=== PATIENT | male | born 1995 | race Caucasian/White ===

== ENCOUNTER 2017-11-14 14:28 | Emergency (ER) | payer BC, OTHER ==
[2017-11-14] MEDS ORDERED: NA CHLORIDE 0.9% 2,000 ML ONE (14:37)
[2017-11-14 14:50] LABS: Absolute Lymphocytes (CBC) 4.6 K/uL (0.7-4.9); Absolute Monocytes 1.1 K/uL (0.1-1.3); Absolute Neutrophil 9.2 K/uL (1.8-8.0); Basophils % 0.6 % (0-1.3); Eosinophils % 0.8 % (0-4.4); Hematocrit 45.8 % (39.6-49.0); Lymphocytes % 30.5 % (15.3-44.8); MCH 28.3 pg (27.0-35.0); MCV 87.3 fL (80-100); MPV 8.8 fL (7.6-11.3); RBC Red Blood Cell Count 5.25 M/uL (4.33-5.43)
[2017-11-14 14:54] LABS: Protime INR 1.05
[2017-11-14] MEDS ORDERED: LIDOCAINE 1% W/EPI 1:100,000 MDV 50 ML VIAL ONE (14:57)
[2017-11-14] MEDS ORDERED: BUPIVACAINE 0.5% PF 10 ML VIAL ONE (14:57)
[2017-11-14] MEDS ORDERED: CEFAZOLIN/SWI 1gm 1 GM/10 ML SYR ONE (14:57)
[2017-11-14 14:59] LABS: Potassium 3.9 mEq/L (3.6-5.0)
[2017-11-14] MEDS ORDERED: FENTANYL CITR 100 MCG/2 ML ONE (15:02)
[2017-11-14] MEDS ORDERED: ONDANSETRON 4 MG/2 ML VIAL ONE (15:02)
--- NOTE | 2017-11-14 16:06 | RAD REPORT ---
EXAM DESCRIPTION: RAD -Hand Left 3 View - 11/14/2017 3:15 pm CLINICAL HISTORY: Left hand pain status post injury FINDINGS: No fracture or dislocation is seen. A bandage overlies the lateral aspect of the hand. A 14 millimeter density overlies the lower wrist. This could represent a foreign body and should be c orrelated clinically. If this does not represent a foreign body then this may represent an unusual calcification
--- NOTE | 2017-11-14 16:31 | ER ---
Nurse's Notes [facility] Name: Aidan Farley Age: 22 yrs Sex: Male : 1995 Arrival Date: 11/14/2017 Time: 14:28 Bed 30 Private MD: Diagnosis: Laceration with foreign body of left hand;Laceration of flexor muscle, fascia and tendon of left little finger at wrist and hand level Presentation: 11/14 14:29 Presenting complaint: Patient states: Lacerated left palm of hand after hitting a aj mirror today just [employer]. Large amount of blood noted to patient's clothing and large gauze dressing to left hand saturated with blood upon arrival. Patient pale and tachypneic. Transition of care: patient was not received from another setting of care. Complicating Factors: There are no complicating factors for this patient. Onset of symptoms was November 14, 2017. Risk Assessment: Do you want to hurt yourself or someone else? Patient reports no desire to harm self or others. Care prior to arrival: Bleeding of injury uncontrolled. Injury dressed. Medication(s) given: zofran 4 mg, IV initiated. 20 GA, in the right antecubital area. 14:29 Method Of Arrival: EMS: [facility] 14:29 Acuity: ARACELI 2 aj 17:26 Initial Sepsis Screen: Does the patient meet any 2 criteria? No. Patient's initial rk2 sepsis screen is negative. Does the patient have a suspected source of infection? No. Patient's initial sepsis screen is negative. Triage Assessment: 14:31 General: Appears in no apparent distress. uncomfortable, slender, Behavior is anxious. aj Pain: Complains of pain in palm of left hand and inner aspect of left palm. Neuro: Level of Consciousness is awake, alert, obeys commands, Oriented to person, place, time, situation, Appropriate for age. Cardiovascular:. Respiratory: Airway is patent Respiratory effort is even, unlabored, Respiratory pattern is tachypnea. Derm: Skin is intact, is healthy with good turgor, Skin is dry, Skin is pale. Injury Description: Laceration sustained to palm of left hand and inner aspect of left palm is 2.6 to 7.5 cm long, bleeding profusely, was sustained 30-60 minutes ago. is bleeding profusely a dressing was applied. Historical: - Allergies: 14:31 No Known Allergies; aj - Home Meds: 14:31 None [Active]; aj - PMHx: 14:31 Seizures; aj - PSHx: 14:31 None; aj - Immunization history:: Adult Immunizations up to date. - Social history:: Smoking status: Patient/guardian denies using tobacco. - Ebola Screening: : Patient negative for fever greater than or equal to 101.5 degrees Fahrenheit, and additional compatible Ebola Virus Disease symptoms Patient denies exposure to infectious person Patient denies travel to an Ebola-affected area in the 21 days before illness onset No symptoms or risks identified at this time. Screenin:52 Abuse screen: Denies threats or abuse. Denies injuries from another. Nutritional aj screening: No deficits noted. Tuberculosis screening: No symptoms or risk factors identified. Fall Risk None identified. Assessment: 14:52 Reassessment: See triage. aj 15:08 General: Appears in no apparent distress. comfortable, Behavior is calm, cooperative, aj appropriate for age. Pain: Complains of pain in left hand. Neuro: Level of Consciousness is awake, alert, obeys commands, Oriented to person, place, time, situation, Appropriate for age. Respiratory: Airway is patent Respiratory effort is even, unlabored, Respiratory pattern is regular, symmetrical. Derm: Skin is intact, is healthy with good turgor, Skin is pink, warm \T\ dry. normal. Musculoskeletal: Patient is unable to bend left 5 th digit. 17:23 Injury Description: Laceration. rk2 17:23 Reassessment: Called report to receiving SISSY Liu.[facility] arrived, rk2 report given. Pt. placed on stretcher and transported. Vital Signs: 14:31 BP 86 / 57; Pulse 93; Resp 31; Temp 97.9; Pulse Ox 97% on R/A; Weight 74.84 kg; Height aj 5 ft. 11 in. (180.34 cm); 14:52 BP 108 / 89; Pulse 93; Resp 18; Pulse Ox 99% on R/A; aj 15:08 BP 117 / 75; Pulse 77; Resp 16; Pulse Ox 98% on R/A; aj 15:54 BP 104 / 81; Pulse 68; Resp 19; Pulse Ox 98% on R/A; aj 16:16 BP 112 / 66; Pulse 86; Resp 17; Pulse Ox 100% on R/A; rk2 17:15 BP 104 / 79; Pulse 99; Resp 17; Pulse Ox 100% on R/A; rk2 14:31 Body Mass Index 23.01 (74.84 kg, 180.34 cm) aj ED Course: 14:28 Patient arrived in ED. aj 14:30 Triage completed. aj 14:31 Arm band placed on right wrist. Patient placed in an exam room. Bandage applied. aj 14:32 Guy Lee PA is PHCP. cp 14:32 Mark Moe MD is Attending Physician. cp 14:39 Celeste Chatterjee RN is Primary Nurse. aj 14:52 Patient has correct armband on for positive identification. aj 14:52 Inserted saline lock: 20 gauge in left antecubital area, using aseptic technique. aj Maintain EMS IV. Gauge \T\ site: 20 to right AC. 15:14 X-ray completed. Portable x-ray completed in exam room. Patient tolerated procedure ag1 poorly. 15:14 XRAY Hand LEFT 3 View In Process Unspecified. EDMS 15:54 Assist provider with laceration repair on palm of left hand and inner aspect of left aj palm that was between 2.6 to 7.5 cm using sutures. Set up tray. Performed by Guy PAYNE Dressed with Radha, Patient tolerated well. 17:26 Patient transferred, IV remains in place. rk2 Administered Medications: 14:39 Drug: NS 0.9% 1000 ml Route: IV; Rate: 1 bolus; Site: left antecubital; aj 17:22 Follow up: Response: No adverse reaction; IV Status: Completed infusion rk2 14:39 Drug: NS 0.9% 1000 ml Route: IV; Rate: 1 bolus; Site: left antecubital; aj 17:22 Follow up: Response: No adverse reaction; IV Status: Completed infusion rk2 14:58 CANCELLED (route changed): Ancef 1 grams IM once aj 14:58 Drug: Ancef 1 grams Route: IVPB; Site: left antecubital; aj 15:30 Follow up: Response: No adverse reaction; IV Status: Completed infusion rk2 15:04 Drug: fentaNYL (PF) 50 mcg Route: IVP; Site: left antecubital; aj 17:21 Follow up: Response: No adverse reaction rk2 15:04 Drug: Zofran 4 mg Route: IVP; Site: left antecubital; aj 17:21 Follow up: Response: No adverse reaction rk2 15:07 Drug: Lidocaine-Epinephrine -1%: (1:100,000) 5 ml Volume: 20 ml; Route: Infiltration; aj 15:07 Drug: Marcaine (0.5 %) 1 mg Volume: 10 ml; Route: Infiltration; aj 17:20 Follow up: Response: No adverse reaction rk2 Outcome: 16:30 ER care complete, transfer ordered by . mendoza 17:25 Transferred by ground EMS to [facility]. rk2 17:25 Condition: good 17:25 Instructed on the need for transfer. 17:26 Patient left the ED. rk2 Signatures: Dispatcher [employer] EDCeleste Alas RN Marivel James ag1 Guy Lee PA PA cp Kidder, Rhonda RN RN rk2 Corrections: (The following items were deleted from the chart) 14:31 14:29 Care prior to arrival: None. charlie guerra
--- NOTE | 2017-11-14 16:31 | EDPHYS ---
Physician Documentation [facility] Name: Aidan Farley Age: 22 yrs Sex: Male : 1995 Arrival Date: 11/14/2017 Time: 14:28 Bed 30 Private MD: ED Physician Mark Moe HPI: 11/14 14:35 This 22 yrs old Male presents to ER via EMS with complaints of Laceration To cp Hand. 14:35 The patient has a laceration related to: became upset occurred at home, and broke cp mirror with left hand The injury was accidental. The laceration(s) is(are) located on the proximal palm of left hand. Onset: The symptoms/episode began/occurred just prior to arrival. Associated signs and symptoms: Pertinent positives: heavy bleeding. Historical: - Allergies: 14:31 No Known Allergies; aj - Home Meds: 14:31 None [Active]; aj - PMHx: 14:31 Seizures; aj - PSHx: 14:31 None; aj - Immunization history:: Adult Immunizations up to date. - Social history:: Smoking status: Patient/guardian denies using tobacco. - Ebola Screening: : Patient negative for fever greater than or equal to 101.5 degrees Fahrenheit, and additional compatible Ebola Virus Disease symptoms Patient denies exposure to infectious person Patient denies travel to an Ebola-affected area in the 21 days before illness onset No symptoms or risks identified at this time. ROS: 14:40 Constitutional: Negative for body aches, chills, fever, poor PO intake. cp 14:40 Cardiovascular: Negative for chest pain, edema. cp 14:40 Respiratory: Negative for cough, shortness of breath, wheezing. 14:40 Abdomen/GI: Negative for abdominal pain, nausea, vomiting, and diarrhea. 14:40 Skin: Positive for laceration(s), Negative for cellulitis, rash. 14:40 All other systems are negative. Exam: 14:45 Constitutional: The patient appears alert, awake, non-toxic, well developed, well cp nourished, in obvious distress, mildly distressed. 14:45 Head/Face: Normocephalic, atraumatic. Eyes: Pupils equal round and reactive to light, cp extra-ocular motions intact. Lids and lashes normal. Conjunctiva and sclera are non-icteric and not injected. Cornea within normal limits. Periorbital areas with no swelling, redness, or edema. ENT: Nares patent. No nasal discharge, no septal abnormalities noted. Tympanic membranes are normal and external auditory canals are clear. Oropharynx with no redness, swelling, or masses, exudates, or evidence of obstruction, uvula midline. Mucous membranes moist. Chest/axilla: Normal chest wall appearance and motion. Nontender with no deformity. No lesions are appreciated. 14:45 Cardiovascular: Rate: normal, actual rate is 93 bpm, Rhythm: regular, Pulses: Pulses are 2+ in right radial artery and left radial artery. 14:45 Respiratory: the patient does not display signs of respiratory distress, Respirations: normal, no use of accessory muscles, no retractions, no splinting, no tachypnea, labored breathing, is not present, Breath sounds: are clear throughout, no decreased breath sounds, no stridor, no wheezing. 14:45 Abdomen/GI: Inspection: abdomen appears normal, Bowel sounds: active, all quadrants, cp Palpation: abdomen is soft and non-tender, in all quadrants, rebound tenderness, is not appreciated, voluntary guarding, is not appreciated, involuntary guarding, is not appreciated. 14:45 Skin: injury, laceration(s), the wound is approximately 7 cm(s), of the landeros aspect of hypothenar eminence extending to hyperthenar eminence, that can be described as clean, no foreign body, irregular, with severe bleeding. 14:45 Neuro: Sensation: 2 point discrimination is decreased in the all digits distally. 14:45 Back: pain, is absent, ROM is normal. cp Vital Signs: 14:31 BP 86 / 57; Pulse 93; Resp 31; Temp 97.9; Pulse Ox 97% on R/A; Weight 74.84 kg; Height aj 5 ft. 11 in. (180.34 cm); 14:52 BP 108 / 89; Pulse 93; Resp 18; Pulse Ox 99% on R/A; aj 15:08 BP 117 / 75; Pulse 77; Resp 16; Pulse Ox 98% on R/A; aj 15:54 BP 104 / 81; Pulse 68; Resp 19; Pulse Ox 98% on R/A; aj 16:16 BP 112 / 66; Pulse 86; Resp 17; Pulse Ox 100% on R/A; rk2 17:15 BP 104 / 79; Pulse 99; Resp 17; Pulse Ox 100% on R/A; rk2 14:31 Body Mass Index 23.01 (74.84 kg, 180.34 cm) aj MDM: 14:54 Patient medically screened. cp 16:00 Physician consultation: Amrik Cunningham MD was called at 15:30, was contacted at 16:00, cp regarding patient's condition, need to come to ED to see patient, requests transfer due to unavailability until this evening. 16:15 Data reviewed: vital signs, nurses notes, lab test result(s), radiologic studies, plain cp films. 16:30 Physician consultation: DR Meehan, hand surgeon \\[facility], would like patient cp admitted to hospitalist with him as consult. Spoke with DR Arndt who will accept patient as transfer. 11/14 14:33 Order name: Basic Metabolic Panel; Complete Time: 15:21 11/14 14:33 Order name: CBC with Diff; Complete Time: 15:21 / 16:08 Interpretation: Normal except: WBC 15.1; NEUT A 9.2. cp / 14:33 Order name: Creatinine for Radiology; Complete Time: 15:21 cp 11/14 14:33 Order name: Type And Screen; Complete Time: 16:07 / 14:33 Order name: PT-INR; Complete Time: 15:21 cp / 14:33 Order name: Ptt, Activated; Complete Time: 15:21 11/14 14:35 Order name: XRAY Hand LEFT 3 View; Complete Time: 16:07 / 16:12 Order name: ABO/RH no charge; Complete Time: 16:30 EDMS 11/14 16:30 Interpretation: Reviewed. 11/14 14:33 Order name: Labs collected and sent; Complete Time: 15:37 cp / 14:33 Order name: IV; Complete Time: 14:40 cp / 14:33 Order name: Dressing - Wound; Complete Time: 14:39 cp 11/14 14:33 Order name: Gloves, Sterile; Complete Time: 14:40 cp 11/14 14:33 Order name: Setup Suture Tray; Complete Time: 14:40 cp / 14:48 Order name: Labs - recollect needed; Complete Time: 15:04 bd 11/14 16:14 Order name: NPO; Complete Time: 16:24 cp Administered Medications: 14:39 Drug: NS 0.9% 1000 ml Route: IV; Rate: 1 bolus; Site: left antecubital; aj 17:22 Follow up: Response: No adverse reaction; IV Status: Completed infusion rk2 14:39 Drug: NS 0.9% 1000 ml Route: IV; Rate: 1 bolus; Site: left antecubital; aj 17:22 Follow up: Response: No adverse reaction; IV Status: Completed infusion rk2 14:58 CANCELLED (route changed): Ancef 1 grams IM once aj 14:58 Drug: Ancef 1 grams Route: IVPB; Site: left antecubital; aj 15:30 Follow up: Response: No adverse reaction; IV Status: Completed infusion rk2 15:04 Drug: fentaNYL (PF) 50 mcg Route: IVP; Site: left antecubital; aj 17:21 Follow up: Response: No adverse reaction rk2 15:04 Drug: Zofran 4 mg Route: IVP; Site: left antecubital; aj 17:21 Follow up: Response: No adverse reaction rk2 15:07 Drug: Lidocaine-Epinephrine -1%: (1:100,000) 5 ml Volume: 20 ml; Route: Infiltration; aj 15:07 Drug: Marcaine (0.5 %) 1 mg Volume: 10 ml; Route: Infiltration; aj 17:20 Follow up: Response: No adverse reaction rk2 Disposition: 17:23 Chart complete. cp 17:44 Co-signature as Attending Physician, Mark Moe MD. rn Disposition: 11/14/17 16:30 Transfer ordered to [facility]. Diagnosis are Laceration with foreign body of left hand, Laceration of flexor muscle, fascia and tendon of left little finger at wrist and hand level. - Reason for transfer: Higher level of care. - Accepting physician is DR Arndt. - Condition is Stable. - Problem is new. - Symptoms have improved. Signatures: Dispatcher [employer] EDMS Roxane Avendano Amanda, RN RN aj Nieto, Roman, MD MD rn Page, Corey, PA PA cp Kidder, Rhonda, RN RN rk2 Corrections: (The following items were deleted from the chart) 14:40 14:33 IV Saline Lock ordered. cp aj 14:58 14:33 Ancef 1 grams IM once ordered. cp aj 16:08 16:08 Normal except: WBC 15.1. cp cp 17:26 16:30 11/14/2017 16:30 Transfer ordered to [facility]. Diagnosis is rk2 Laceration with foreign body of left hand; Laceration of flexor muscle, fascia and tendon of left little finger at wrist and hand level. Reason for transfer: Higher level of care. Accepting physician is DR Arndt. Condition is Stable. Problem is new. Symptoms have improved. cp
[2017-11-14 18:30] VITALS: TEMP 97.9
[2017-11-14 18:34] VITALS: O2SAT 100
[2017-11-14 18:35] VITALS: BP 104/79
== END 2017-11-14 17:26 | disposition short-term general hospital (02) ==
LOC: ER 14:28
DX: S61.412A Laceration without foreign body of left hand, initial encounter (principal); S66.127A Laceration of flexor muscle, fascia and tendon of left little finger at wrist and hand level, initial encounter; W25.XXXA Contact with sharp glass, initial encounter; Y93.9 Activity, unspecified; Y92.009 Unspecified place in unspecified non-institutional (private) residence as the place of occurrence of the external cause; Y99.9 Unspecified external cause status
CPT/HCPCS: 36415; 80048; 85025; 85610; 85730; 86850; 86900; 86901; 96361; 96365; 96375; 99285; J0690; J2405; J3010; J7030

== ENCOUNTER 2019-06-14 08:51 | Emergency (ER) | payer BC ==
--- OUTSIDE RECORDS SUMMARY | 2019-06-14 08:54 | XMS REPORT ---
:1995 [facility] Organization [facility] Address [address] [place] [address] [address]. [address] [place] [address] Care Team Providers Name Role Phone RAMONA CHANTEL M. Unavailable Unavailable Problems This patient has no known problems. Allergies, Adverse Reactions, Alerts This patient has no known allergies or adverse reactions. Medications This patient has no known medications. Results Test Description Test Time Test Comments Text Results Atomic Results Result Comments CT, BRAIN, WITHOUT CONTRAST 2017-11-16 10:36:[address] head without contrast. Comparisons: No Reason for exam: Head trauma, mental status change. Discussion: Multiple axial CT images of the head are provided without contrast evaluated in brain and bone windows. Dose modulation, iterative reconstruction, and/or weight based adjustment of the mA/kV was utilized to reduce the radiation dose to as low as reasonably achievable. There is no CT evidence of intracranial hematoma, mass-effect, hydrocephalus, shift, or extra-axial collections. Subtle hyperdensity is present in the left frontal operculum region, image 16 and 17. This is potentially an artifact but I could not exclude a parenchymal lesion with calcification or even subtle regional hemorrhage. The visualized dural sinus regions, orbital contents, paranasal sinuses, bones and surrounding soft tissues are unremarkable. Impressions: 1. Subtle hyperdensity left frontal operculum region, etiology unclear. The possibility of minimal trauma related hemorrhage is not excluded. Consider either short-term head CT follow-up or MRI depending on the clinical scenario. 2. Otherwise unremarkable head CT.. Signed: Valentine Gupta Verified Date/Time: 11/16/2017 10:36:34 Reading Location: [address] Neuro Reading Room INOGEN 2017-11-16 05:38:00 Test Item Value Reference Range Comments FIBRINOGEN LEVEL (BEAKER) (test evhp=586) 245 mg/dl 225-434 [id number] 05:38:00 Test Item Value Reference Range Comments PARTIAL THROMBOPLASTIN TIME (BEAKER) (test 31.6 seconds 22.5-36.0 creu=039) PROTHROMBIN [id number] 05:37:00 Test Item Value Reference Range Comments PROTIME (BEAKER) (test pgae=766) 16.9 seconds 11.7-14.7 INR (BEAKER) (test uusf=153) 1.4 <=5.9 RECOMMENDED COUMADIN/WARFARIN INR THERAPY RANGESSTANDARD DOSE: 2.0 - 3.0 Includes: PROPHYLAXIS forvenous thrombosis, systemic embolization; TREATMENT for venous thrombosis and/or pulmonary embolus.HIGH RISK: Target INR is 2.5-3.5 for patients with mechanical heart valves.BASIC METABOLIC [id number] 05:34: 00 Test Item Value Reference Range Comments SODIUM (BEAKER) (test 140 meq/L 136-145 lsrw=669) POTASSIUM (BEAKER) (test 3.5 meq/L 3.5-5.1 bktg=835) CHLORIDE (BEAKER) (test 111 meq/L 98-107 budc=332) CO2 (BEAKER) (test 25 meq/L 22-29 rmfj=696) BLOOD UREA NITROGEN 7 mg/dL 7-21 (BEAKER) (test tmgn=813) CREATININE (BEAKER) (test 0.75 mg/dL 0.57-1.25 bgne=354) GLUCOSE RANDOM (BEAKER) 97 mg/dL 70-105 (test jovc=458) CALCIUM (BEAKER) (test 7.8 mg/dL 8.4-10.2 ynqc=812) EGFR (BEAKER) (test 129 mL/min/1.73 sq m ESTIMATED GFR IS NOT ftnu=4142) ACCURATE CREATININE CLEARANCE IN PREDICTING GLOMERULAR FILTRATION RATE. ESTIMATED GFR IS NOT APPLICABLE FOR DIALYSIS PATIENTS. [id number] 05:33:00 Test Item Value Reference Range Comments MAGNESIUM (BEAKER) (test sprs=117) 1.9 mg/dL 1.6-2.6 HEPATIC FUNCTION [id number] 05:33:00 Test Item Value Reference Range Comments TOTAL PROTEIN (BEAKER) (test dnxm=789) 4.6 gm/dL 6.0-8.3 ALBUMIN (BEAKER) (test fwbe=2286) 3.2 g/dL 3.5-5.0 BILIRUBIN TOTAL (BEAKER) (test llmt=765) 0.6 mg/dL 0.2-1.2 BILIRUBIN DIRECT (BEAKER) (test bxhb=806) 0.3 mg/dL 0.1-0.5 ALKALINE PHOSPHATASE (BEAKER) (test rpml=558) 46 U/L 40-150 AST (SGOT) (BEAKER) (test jwle=978) 30 U/L 5-34 ALT (SGPT) (BEAKER) (test joag=107) 12 U/L 6-55 CBC W/PLT COUNT & AUTO [id number] 05:19:00 Test Item Value Reference Range Comments WHITE BLOOD CELL COUNT (BEAKER) (test mayn=796) 15.5 K/ L 3.5-10.5 RED BLOOD CELL COUNT (BEAKER) (test rvfn=585) 2.85 M/ L 4.63-6.08 HEMOGLOBIN (BEAKER) (test bguo=016) 8.3 GM/DL 13.7-17.5 HEMATOCRIT (BEAKER) (test irla=105) 23.9 % 40.1-51.0 MEAN CORPUSCULAR VOLUME (BEAKER) (test uctk=684) 83.9 fL 79.0-92.2 MEAN CORPUSCULAR HEMOGLOBIN (BEAKER) (test 29.1 pg 25.7-32.2 ilzs=427) MEAN CORPUSCULAR HEMOGLOBIN CONC (BEAKER) (test 34.7 GM/DL 32.3-36.5 plii=667) RED CELL DISTRIBUTION WIDTH (BEAKER) (test 14.6 % 11.6-14.4 jxfj=791) PLATELET COUNT (BEAKER) (test zddh=847) 108 K/CU MM 150-450 MEAN PLATELET VOLUME (BEAKER) (test vvru=881) 10.4 fL 9.4-12.4 NUCLEATED RED BLOOD CELLS (BEAKER) (test 0 /100 WBC 0-0 ptsa=119) NEUTROPHILS RELATIVE PERCENT (BEAKER) (test 68 % ryhk=339) LYMPHOCYTES RELATIVE PERCENT (BEAKER) (test 23 % rgvt=840) MONOCYTES RELATIVE PERCENT (BEAKER) (test 9 % tsce=030) EOSINOPHILS RELATIVE PERCENT (BEAKER) (test 0 % nwdd=041) BASOPHILS RELATIVE PERCENT (BEAKER) (test 0 % aypm=443) NEUTROPHILS ABSOLUTE COUNT (BEAKER) (test 10.52 K/ L 1.78-5.38 dlgm=563) LYMPHOCYTES ABSOLUTE COUNT (BEAKER) (test 3.53 K/ L 1.32-3.57 ylxz=366) MONOCYTES ABSOLUTE COUNT (BEAKER) (test 1.35 K/ L 0.30-0.82 qqfh=587) EOSINOPHILS ABSOLUTE COUNT (BEAKER) (test 0.01 K/ L 0.04-0.54 rtgc=503) BASOPHILS ABSOLUTE COUNT (BEAKER) (test 0.02 K/ L 0.01-0.08 nydo=041) IMMATURE GRANULOCYTES-RELATIVE PERCENT (BEAKER) 1 % 0-1 (test iwkd=3853) PROTHROMBIN [id number] 09:47:00 Test Item Value Reference Range Comments PROTIME (BEAKER) (test tjhu=533) 19.8 seconds 11.7-14.7 INR (BEAKER) (test lxjl=641) 1.7 <=5.9 RECOMMENDED COUMADIN/WARFARIN INR THERAPY RANGESSTANDARD DOSE: 2.0 - 3.0 Includes: PROPHYLAXIS forvenous thrombosis, systemic embolization; TREATMENT for venous thrombosis and/or pulmonary embolus.HIGH RISK: Target INR is 2.5-3.5 for patients with mechanical heart valves.[id number] 09:47:00 Test Item Value Reference Range Comments PARTIAL THROMBOPLASTIN TIME (BEAKER) (test 31.8 seconds 22.5-36.0 igva=422) CALCIUM, [id number] 09:11:00 Test Item Value Reference Range Comments CALCIUM IONIZED (BEAKER) (test qrec=220) 0.99 mmol/L 1.12-1.27 PH, BLOOD (BEAKER) (test pxqu=2328) 7.32 SODIUM NA-STAT [id number] 09:10:00 Test Item Value Reference Range Comments SODIUM (BEAKER) (test egyw=756) 135 meq/L 135-148 POTASSIUM-STAT [id number] 09:10:00 Test Item Value Reference Range Comments POTASSIUM (BEAKER) (test nljp=240) 3.8 meq/L 3.6-5.5 BLOOD GAS, [id number] 09:10:00 Test Item Value Reference Range Comments PH ARTERIAL (BEAKER) (test iohu=854) 7.33 7.35-7.45 PCO2 ARTERIAL (BEAKER) (test wpws=222) 39 mmHg 35-45 PO2 ARTERIAL (BEAKER) (test rpoe=184) 272 mmHg 80-90 O2 SATURATION ARTERIAL (BEAKER) (test cqfs=788) 99.6 % 96.0-97.0 HCO3 ARTERIAL (BEAKER) (test hqyf=177) 20 mmol/L 21-29 BASE EXCESS ARTERIAL (BEAKER) (test xdyu=654) -5.5 mmol/L -2.0-3.0 PATIENT TEMPERATURE (BEAKER) (test unos=3791) 36.1 C FIO2 (BEAKER) (test hpwv=9227) 50.0 % GLUCOSE-STAT [id number] 09:10:00 Test Item Value Reference Range Comments GLUCOSE RANDOM (BEAKER) (test eobt=415) 117 mg/dL 70-110 HGB/HCT (H&H) - STAT [id number] 09:10:00 Test Item Value Reference Range Comments HEMOGLOBIN (BEAKER) (test qrmf=246) 10.4 g/dL 13.0-16.8 HEMATOCRIT (BEAKER) (test qaju=967) 31.0 % 40.0-50.0 HEMOGLOBIN AND [id number] 06:26:00 Test Item Value Reference Range Comments HEMOGLOBIN (BEAKER) (test tkbv=504) 6.4 GM/DL 13.7-17.5 HEMATOCRIT (BEAKER) (test ilei=620) 21.9 % 40.1-51.0 [id number] 06:23:00 Test Item Value Reference Range Comments PROTIME (BEAKER) (test zwaj=044) 26.3 seconds 11.7-14.7 INR (BEAKER) (test qeww=072) 2.4 <=5.9 PARTIAL THROMBOPLASTIN TIME (BEAKER) (test 43.9 seconds 22.5-36.0 vasr=940) RECOMMENDED COUMADIN/WARFARIN INR THERAPY RANGESSTANDARD DOSE: 2.0 - 3.0 Includes: PROPHYLAXIS forvenous thrombosis, systemic embolization; TREATMENT for venous thrombosis and/or pulmonary embolus.HIGH RISK: Target INR is 2.5-3.5 for patients with mechanical heart valves.CBC W/PLT COUNT & AUTO [id number] 06:11:00 Test Item Value Reference Range Comments WHITE BLOOD CELL COUNT (BEAKER) (test cdsp=185) 15.3 K/ L 3.5-10.5 RED BLOOD CELL COUNT (BEAKER) (test bpgw=871) 3.53 M/ L 4.63-6.08 HEMOGLOBIN (BEAKER) (test utfr=288) 10.3 GM/DL 13.7-17.5 HEMATOCRIT (BEAKER) (test mhkk=735) 30.8 % 40.1-51.0 MEAN CORPUSCULAR VOLUME (BEAKER) (test bdqb=737) 87.3 fL 79.0-92.2 MEAN CORPUSCULAR HEMOGLOBIN (BEAKER) (test 29.2 pg 25.7-32.2 zlcu=150) MEAN CORPUSCULAR HEMOGLOBIN CONC (BEAKER) (test 33.4 GM/DL 32.3-36.5 tbex=010) RED CELL DISTRIBUTION WIDTH (BEAKER) (test 12.5 % 11.6-14.4 dobn=045) PLATELET COUNT (BEAKER) (test cgtf=900) 186 K/CU MM 150-450 MEAN PLATELET VOLUME (BEAKER) (test fthf=636) 10.3 fL 9.4-12.4 NUCLEATED RED BLOOD CELLS (BEAKER) (test 0 /100 WBC 0-0 fwvi=972) NEUTROPHILS RELATIVE PERCENT (BEAKER) (test 65 % isxs=267) LYMPHOCYTES RELATIVE PERCENT (BEAKER) (test 26 % vmez=379) MONOCYTES RELATIVE PERCENT (BEAKER) (test 8 % ists=449) EOSINOPHILS RELATIVE PERCENT (BEAKER) (test 0 % umro=747) BASOPHILS RELATIVE PERCENT (BEAKER) (test 0 % nhmb=818) NEUTROPHILS ABSOLUTE COUNT (BEAKER) (test 9.96 K/ L 1.78-5.38 cjcq=645) LYMPHOCYTES ABSOLUTE COUNT (BEAKER) (test 4.03 K/ L 1.32-3.57 qtyr=796) MONOCYTES ABSOLUTE COUNT (BEAKER) (test 1.16 K/ L 0.30-0.82 rmjg=678) EOSINOPHILS ABSOLUTE COUNT (BEAKER) (test 0.04 K/ L 0.04-0.54 bmpq=394) BASOPHILS ABSOLUTE COUNT (BEAKER) (test 0.05 K/ L 0.01-0.08 jram=210) IMMATURE GRANULOCYTES-RELATIVE PERCENT (BEAKER) 1 % 0-1 (test najd=1788) [id number] 06:03:00 Test Item Value Reference Range Comments MAGNESIUM (BEAKER) (test ndnq=286) 1.8 mg/dL 1.6-2.6 BASIC METABOLIC [id number] 06:03:00 Test Item Value Reference Range Comments SODIUM (BEAKER) (test 138 meq/L 136-145 tsfl=221) POTASSIUM (BEAKER) (test 4.0 meq/L 3.5-5.1 heig=109) CHLORIDE (BEAKER) (test 109 meq/L 98-107 qrsu=338) CO2 (BEAKER) (test 25 meq/L 22-29 rklj=000) BLOOD UREA NITROGEN 12 mg/dL 7-21 (BEAKER) (test pzbv=932) CREATININE (BEAKER) (test 0.82 mg/dL 0.57-1.25 rodd=087) GLUCOSE RANDOM (BEAKER) 97 mg/dL 70-105 (test ejyo=720) CALCIUM (BEAKER) (test 8.4 mg/dL 8.4-10.2 ppdg=519) EGFR (BEAKER) (test 116 mL/min/1.73 sq m ESTIMATED GFR IS NOT njku=3796) ACCURATE CREATININE CLEARANCE IN PREDICTING GLOMERULAR FILTRATION RATE. ESTIMATED GFR IS NOT APPLICABLE FOR DIALYSIS PATIENTS. BASIC METABOLIC [id number] 22:16:00 Test Item Value Reference Range Comments SODIUM (BEAKER) (test 140 meq/L 136-145 uson=470) POTASSIUM (BEAKER) (test 3.9 meq/L 3.5-5.1 uhmz=148) CHLORIDE (BEAKER) (test 108 meq/L 98-107 ygql=306) CO2 (BEAKER) (test 24 meq/L 22-29 ufdv=282) BLOOD UREA NITROGEN 11 mg/dL 7-21 (BEAKER) (test nrxd=604) CREATININE (BEAKER) (test 0.90 mg/dL 0.57-1.25 gsju=666) GLUCOSE RANDOM (BEAKER) 106 mg/dL 70-105 (test zwro=608) CALCIUM (BEAKER) (test 8.7 mg/dL 8.4-10.2 dede=765) EGFR (BEAKER) (test 105 mL/min/1.73 sq m ESTIMATED GFR IS NOT tixk=5681) ACCURATE CREATININE CLEARANCE IN PREDICTING GLOMERULAR FILTRATION RATE. ESTIMATED GFR IS NOT APPLICABLE FOR DIALYSIS PATIENTS. CBC W/PLT COUNT & AUTO [id number] 22:10:00 Test Item Value Reference Range Comments WHITE BLOOD CELL COUNT (BEAKER) (test rbpf=671) 17.8 K/ L 3.5-10.5 RED BLOOD CELL COUNT (BEAKER) (test wdfu=135) 4.07 M/ L 4.63-6.08 HEMOGLOBIN (BEAKER) (test aqhv=367) 11.7 GM/DL 13.7-17.5 HEMATOCRIT (BEAKER) (test sbro=603) 35.0 % 40.1-51.0 MEAN CORPUSCULAR VOLUME (BEAKER) (test vpkz=623) 86.0 fL 79.0-92.2 MEAN CORPUSCULAR HEMOGLOBIN (BEAKER) (test 28.7 pg 25.7-32.2 aslz=603) MEAN CORPUSCULAR HEMOGLOBIN CONC (BEAKER) (test 33.4 GM/DL 32.3-36.5 qqoq=073) RED CELL DISTRIBUTION WIDTH (BEAKER) (test 12.1 % 11.6-14.4 ymdd=556) PLATELET COUNT (BEAKER) (test nogu=556) 225 K/CU MM 150-450 MEAN PLATELET VOLUME (BEAKER) (test puak=549) 11.5 fL 9.4-12.4 NUCLEATED RED BLOOD CELLS (BEAKER) (test 0 /100 WBC 0-0 qojg=498) NEUTROPHILS RELATIVE PERCENT (BEAKER) (test 89 % gejz=566) LYMPHOCYTES RELATIVE PERCENT (BEAKER) (test 7 % yyiw=440) MONOCYTES RELATIVE PERCENT (BEAKER) (test 3 % iudx=539) EOSINOPHILS RELATIVE PERCENT (BEAKER) (test 0 % xyhi=568) BASOPHILS RELATIVE PERCENT (BEAKER) (test 0 % stpp=529) NEUTROPHILS ABSOLUTE COUNT (BEAKER) (test 15.84 K/ L 1.78-5.38 qmzm=607) LYMPHOCYTES ABSOLUTE COUNT (BEAKER) (test 1.18 K/ L 1.32-3.57 wexz=934) MONOCYTES ABSOLUTE COUNT (BEAKER) (test 0.57 K/ L 0.30-0.82 wicp=257) EOSINOPHILS ABSOLUTE COUNT (BEAKER) (test 0.00 K/ L 0.04-0.54 wkfe=675) BASOPHILS ABSOLUTE COUNT (BEAKER) (test 0.05 K/ L 0.01-0.08 ptpr=657) IMMATURE GRANULOCYTES-RELATIVE PERCENT (BEAKER) 1 % 0-1 (test qpfb=7607)
[2019-06-14 09:39] LABS: Absolute Lymphocytes (CBC) 2.5 K/uL (0.7-4.9); Basophils % 0.6 % (0-1.3); Hematocrit 42.9 % (39.6-49.0); Lymphocytes % 22.6 % (15.3-44.8); MPV 8.2 fL (7.6-11.3); RBC Red Blood Cell Count 4.93 M/uL (4.33-5.43)
[2019-06-14 09:57] LABS: BUN Blood Urea Nitrogen 7 mg/dL (7-18); Bicarbonate 24 mmol/L (21-32); Glucose Level 95 mg/dL (74-106); Sodium Level 142 mmol/L (136-145)
--- NOTE | 2019-06-14 11:16 | ER ---
Nurse's Notes [facility] Name: Aidan Farley Age: 24 yrs Sex: Male : 1995 Arrival Date: 06/14/2019 Time: 08:52 Bed 6 Private MD: Diagnosis: Epilepsy and recurrent seizures Presentation: 06/14 08:54 Presenting complaint: EMS states: Had seizure at work, witnessed by co-workers who ph reported pt falling and hitting head, pt denies head pain, c/o pain to L shoulder, hx of shoulder dislocation, also has hx of seizures but has not had meds in "a few months". Transition of care: patient was not received from another setting of care. Onset of symptoms was June 14, 2019. Risk Assessment: Do you want to hurt yourself or someone else? Patient reports no desire to harm self or others. Initial Sepsis Screen: Does the patient meet any 2 criteria? No. Patient's initial sepsis screen is negative. Does the patient have a suspected source of infection? No. Patient's initial sepsis screen is negative. Care prior to arrival: IV initiated. 18 GA, in the left antecubital area. 08:54 Method Of Arrival: EMS: [facility] ph 08:54 Acuity: ARACELI 3 ph Historical: - Allergies: 08:57 No Known Allergies; ph - PMHx: 08:57 Seizures; ph - PSHx: 08:57 None; ph - Immunization history:: Adult Immunizations unknown. - Social history:: Smoking status: Patient/guardian denies using tobacco, Patient uses alcohol, occasionally. street drugs, marijuana. - Ebola Screening: : No symptoms or risks identified at this time. Screenin:58 Abuse screen: Denies threats or abuse. Denies injuries from another. Nutritional ph screening: No deficits noted. Tuberculosis screening: No symptoms or risk factors identified. Fall Risk Fall in past 12 months (25 points). Secondary diagnosis (15 points) seizures, IV access (20 points). Ambulatory Aid- None/Bed Rest/Nurse Assist (0 pts). Gait- Normal/Bed Rest/Wheelchair (0 pts) Mental Status- Oriented to own ability (0 pts). Assessment: 08:59 General: Appears in no apparent distress. comfortable, slender, Behavior is calm, ph cooperative, appropriate for age, Denies fever, feeling ill. Pain: Complains of pain in anterior aspect of left shoulder. Neuro: Level of Consciousness is awake, alert, obeys commands, Oriented to person, place, time, situation, Denies blurred vision dizziness, headache Seizure activity reported prior to arrival. Patient is post-ictal at this time. Cardiovascular: Capillary refill < 3 seconds in bilateral fingers Patient's skin is warm and dry. Respiratory: Airway is patent Respiratory effort is even, unlabored, Respiratory pattern is regular, symmetrical. GI: No signs and/or symptoms were reported involving the gastrointestinal system. Derm: Skin is intact, is healthy with good turgor, Skin is pink, warm \\T\\ dry. Musculoskeletal: Circulation, motion, and sensation intact. Range of motion: intact in all extremities. 10:02 Reassessment: Patient appears in no apparent distress at this time. Patient and/or ph family updated on plan of care and expected duration. Pain level reassessed. Patient is alert, oriented x 3, equal unlabored respirations, skin warm/dry/pink. Pt resting quietly, awaiting lab results, family at bedside. 11:08 Reassessment: Patient appears in no apparent distress at this time. No changes from previously documented assessment. Patient and/or family updated on plan of care and expected duration. Pain level reassessed. Patient is alert, oriented x 3, equal unlabored respirations, skin warm/dry/pink. 11:28 Reassessment: Patient appears in no apparent distress at this time. Patient and/or ph family updated on plan of care and expected duration. Pain level reassessed. Patient is alert, oriented x 3, equal unlabored respirations, skin warm/dry/pink. Pt d/c home w/ prescription for seizure medications, instructed to follow up w/ Dr Marquez. Vital Signs: 08:56 BP 140 / 75; Pulse 117; Resp 20; Temp 98.5; Pulse Ox 100% on R/A; Weight 77.11 kg; ph Height 5 ft. 11 in. (180.34 cm); 10:03 BP 116 / 66; Pulse 101; Resp 18; Pulse Ox 98% on R/A; ph 11:08 BP 116 / 73; Pulse 70; Resp 18; Pulse Ox 99% on R/A; ph 08:56 Body Mass Index 23.71 (77.11 kg, 180.34 cm) ED Course: 08:52 Patient arrived in ED. em1 08:53 Cristofer Iyer, RN is Primary Nurse. bp 08:54 Jonathan Latham MD is Attending Physician. kdr 08:56 Triage completed. ph 08:58 Arm band placed on Patient placed in an exam room, on a stretcher, on pulse oximetry. ph 09:01 Patient has correct armband on for positive identification. Bed in low position. Call ph light in reach. Side rails up X2. Seizure precautions initiated. Pulse ox on. NIBP on. Door closed. Noise minimized. Warm blanket given. 09:01 Maintain EMS IV. Dressing intact. Good blood return noted. Site clean \\T\\ dry. Gauge \\T\\ ph site: 18 LAC. 10:02 Lucia Rosado, RN is Primary Nurse. ph 10:03 No provider procedures requiring assistance completed. ph 11:13 Surjit Marquez MD is Referral Physician. kdr 11:29 IV discontinued, intact, bleeding controlled, No redness/swelling at site. Pressure ph dressing applied. Administered Medications: No medications were administered Outcome: 11:15 Discharge ordered by . kdr 11:29 Discharged to home ambulatory, with family. ph 11:29 Condition: good 11:29 Discharge instructions given to patient, Instructed on discharge instructions, follow up and referral plans. medication usage, Demonstrated understanding of instructions, follow-up care, medications, Prescriptions given X 1. 11:30 Patient left the ED. ph Signatures: Jonathan Latham MD MD kdr Martinez, Eric em1 Lucia Rosado RN RN ph Cristofer Iyer, SISSY RN bp
--- NOTE | 2019-06-14 11:17 | EDPHYS ---
Physician Documentation [facility] Name: Aidan Farley Age: 24 yrs Sex: Male : 1995 Arrival Date: 06/14/2019 Time: 08:52 Bed 6 Private MD: ED Physician Jonathan Latham HPI: 06/14 11:15 This 24 yrs old Male presents to ER via EMS with complaints of seizure. kdr 11:15 The patient presents after having a single isolated seizure. Character of seizure(s): kdr Loss of consciousness: the patient experienced loss of consciousness, Motor activity: generalized, Incontinence: none, Apnea: the patient did not experience apnea, Circulation: the patient did not experience evidence of pulse disturbance. Seizure onset: just prior to arrival, this morning. Context: the seizure(s) was witnessed, by a bystander, by co-worker(s), occurred at work, occurred while the patient was standing, Contributing factors: missed recent doses of medications, has been off his Lamictal for several months. Seizure Hx: Original onset: longstanding, Last seizure: The patient's last seizure Last July. Associated injury: The patient did not suffer any apparent associated injury. The patient has experienced similar episodes in the past. The patient has not recently seen a physician. Historical: - Allergies: 08:57 No Known Allergies; ph - PMHx: 08:57 Seizures; ph - PSHx: 08:57 None; ph - Immunization history:: Adult Immunizations unknown. - Social history:: Smoking status: Patient/guardian denies using tobacco, Patient uses alcohol, occasionally. street drugs, marijuana. - Ebola Screening: : No symptoms or risks identified at this time. ROS: 11:15 Constitutional: Negative for fever, chills, and weight loss, Eyes: Negative for injury, kdr pain, redness, and discharge, ENT: Negative for injury, pain, and discharge, Neck: Negative for injury, pain, and swelling, Cardiovascular: Negative for chest pain, palpitations, and edema, Respiratory: Negative for shortness of breath, cough, wheezing, and pleuritic chest pain, Abdomen/GI: Negative for abdominal pain, nausea, vomiting, diarrhea, and constipation, Back: Negative for injury and pain, : Negative for injury, bleeding, discharge, and swelling, Skin: Negative for injury, rash, and discoloration, Neuro: Negative for headache, weakness, numbness, tingling, and seizure activity. 11:15 MS/extremity: Positive for pain, Left shoulder - has chronic pain from prior dislocation/seizure. Exam: 11:15 Constitutional: This is a well developed, well nourished patient who is awake, alert, kdr and in no acute distress. Head/Face: Normocephalic, atraumatic. Eyes: Pupils equal round and reactive to light, extra-ocular motions intact. Lids and lashes normal. Conjunctiva and sclera are non-icteric and not injected. Cornea within normal limits. Periorbital areas with no swelling, redness, or edema. Neck: Trachea midline, no thyromegaly or masses palpated, and no cervical lymphadenopathy. Supple, full range of motion without nuchal rigidity, or vertebral point tenderness. No Meningismus. Chest/axilla: Normal chest wall appearance and motion. Nontender with no deformity. No lesions are appreciated. Cardiovascular: Regular rate and rhythm with a normal S1 and S2. No gallops, murmurs, or rubs. Normal PMI, no JVD. No pulse deficits. Respiratory: Lungs have equal breath sounds bilaterally, clear to auscultation and percussion. No rales, rhonchi or wheezes noted. No increased work of breathing, no retractions or nasal flaring. Abdomen/GI: Soft, non-tender, with normal bowel sounds. No distension or tympany. No guarding or rebound. No evidence of tenderness throughout. Back: No spinal tenderness. No costovertebral tenderness. Full range of motion. Skin: Warm, dry with normal turgor. Normal color with no rashes, no lesions, and no evidence of cellulitis. MS/ Extremity: Pulses equal, no cyanosis. Neurovascular intact. Full, normal range of motion. Neuro: Awake and alert, GCS 15, oriented to person, place, time, and situation. Cranial nerves II-XII grossly intact. Motor strength 5/5 in all extremities. Sensory grossly intact. Cerebellar exam normal. Normal gait. Psych: Awake, alert, with orientation to person, place and time. Behavior, mood, and affect are within normal limits. Vital Signs: 08:56 BP 140 / 75; Pulse 117; Resp 20; Temp 98.5; Pulse Ox 100% on R/A; Weight 77.11 kg; ph Height 5 ft. 11 in. (180.34 cm); 10:03 BP 116 / 66; Pulse 101; Resp 18; Pulse Ox 98% on R/A; ph 11:08 BP 116 / 73; Pulse 70; Resp 18; Pulse Ox 99% on R/A; ph 08:56 Body Mass Index 23.71 (77.11 kg, 180.34 cm) ph MDM: 11:15 Patient medically screened. kdr 11:15 Data reviewed: vital signs, nurses notes, lab test result(s). Counseling: I had a kdr detailed discussion with the patient and/or guardian regarding: the historical points, exam findings, and any diagnostic results supporting the discharge/admit diagnosis, lab results, the need for outpatient follow up. Physician consultation: Surjit Marquez MD and will see patient in office, next week, would like medications started, Lamictal 25 mg BID for 7 days then 50 mg BID for 7 pain. 06/14 09:11 Order name: CBC with Diff kdr 06/14 09:11 Order name: Chem 7; Complete Time: 11:12 kdr Administered Medications: No medications were administered Disposition: 06/14/19 11:15 Discharged to Home. Impression: Epilepsy and recurrent seizures. - Condition is Stable. - Discharge Instructions: Seizure, Adult, [id number]. - Prescriptions for Lamictal 25 mg Oral tablet - take 1 tablet by ORAL route 2 times per day Take one tablet twice a day for one week then two tablets twice a day for one week. Dr. Marquez will see you in the office to continue the proper dosing after this period; 42 tablet. - Medication Reconciliation Form, Thank You Letter form. - Follow up: Surjit Marquez MD; When: 2 - 3 days; Reason: If symptoms return, Further diagnostic work-up, Recheck today's complaints, Continuance of care, Re-evaluation by your physician. - Problem is an acute exacerbation. - Symptoms are resolved. Signatures: Dispatcher [employer] EDMS Jonathan Latham MD MD kdr Lucia Rosado RN RN ph Corrections: (The following items were deleted from the chart) 11:30 11:15 06/14/2019 11:15 Discharged to Home. Impression: Epilepsy and recurrent seizures. ph Condition is Stable. Discharge Instructions: Seizure, Adult, [id number]. Prescriptions for Lamictal 25 mg Oral tablet - take 1 tablet by ORAL route 2 times per day Take one tablet twice a day for one week then two tablets twice a day for one week. Dr. Marquez will see you in the office to continue the proper dosing after this period; 42 tablet. and Forms are Medication Reconciliation Form, Thank You Letter, Antibiotic Education, Prescription Opioid Use. Follow up: Surjit Marquez; When: 2 - 3 days; Reason: If symptoms return, Further diagnostic work-up, Recheck today's complaints, Continuance of care, Re-evaluation by your physician. Problem is an acute exacerbation. Symptoms are resolved. kdr
[2019-06-14 11:41] VITALS: TEMP 98.5
[2019-06-14 11:44] VITALS: BP 116/73; O2SAT 99
== END 2019-06-14 11:30 | disposition home or self-care (01) ==
LOC: ER 08:51
DX: G40.802 Other epilepsy, not intractable, without status epilepticus (principal); M25.512 Pain in left shoulder
CPT/HCPCS: 36415; 80048; 85025; 99283

== ENCOUNTER 2021-08-22 07:51 | Emergency (ER) | payer OTHER ==
--- OUTSIDE RECORDS SUMMARY | 2021-08-22 07:53 | XMS REPORT | Continuity of Care Document ---
:1995 Author Organization [facility] Address [address] [place] [address] Dr. Montelongo [address] [place] [id number] Care Team Providers Name Role Phone Michelle GREENE Attending Clinician Unavailable Michelle GREENE Admitting Clinician Unavailable Problems This patient has no known problems. Allergies, Adverse Reactions, Alerts This patient has no known allergies or adverse reactions. Medications This patient has no known medications. Procedures This patient has no known procedures. Results Test Description Test Time Test Comments [facility], [facility] 2017-11-16 FINAL REPORT PATIENT CONTRAST 10:36:00 ID: [id number] CT head without contrast. Comparisons: No Reason [...] Gupta Verified Date/Time: 11/16/2017 10:36:34 Reading Location: [facility] C013 Neuro Reading Room INOGEN 2017-11-16 05:38:00 Test Item Value Reference Range Interpretation Comme nts FIBRINOGEN LEVEL (BEAKER) (test code = 658) 245 mg/dl 225-434 [id number] 05:38:00 Test Item Value Reference Range Interpretation Comments PARTIAL THROMBOPLASTIN TIME 31.6 seconds 22.5-36.0 (BEAKER) (test code = 760) PROTHROMBIN [id number] 05:37:00 Test Item Value Reference Range Interpretation Comments PROTIME (BEAKER) (test code = 16.9 seconds 11.7-14.7 H 759) INR (BEAKER) (test code = 370) 1.4 <=5.9 RECOMMENDED COUMADIN/WARFARIN INR THERAPY RANGESSTANDARD DOSE: 2.0 - 3.0 Includes: PROPHYLAXIS forvenous thrombosis, systemic embolization; TREATMENT for venous thrombosis and/or pulmonary embolus.HIGH RISK: Target INR is 2.5-3.5 for patients with mechanical heart valves.BASIC METABOLIC [id number] 05:34:00 Test Item Value Reference Range Interpretation Comments SODIUM (BEAKER) 140 meq/L 136-145 (test code = 381) POTASSIUM (BEAKER) 3.5 meq/L 3.5-5.1 (test code = 379) CHLORIDE (BEAKER) 111 meq/L 98-107 H (test code = 382) CO2 (BEAKER) (test 25 meq/L 22-29 code = 355) BLOOD UREA NITROGEN 7 mg/dL 7-21 (BEAKER) (test code = 354) CREATININE (BEAKER) 0.75 mg/dL 0.57-1.25 (test code = 358) GLUCOSE RANDOM 97 mg/dL 70-105 (BEAKER) (test code = 652) CALCIUM (BEAKER) 7.8 mg/dL 8.4-10.2 L (test code = 697) EGFR (BEAKER) (test 129 mL/min/1.73 ESTIM ATED GFR IS code = 1092) sq m NOT ACCURATE CREATININE CLEARANCE IN PREDICTING GLOMERULAR FILTRATION RATE . ESTIMATED GFR I S NOT APPLICABLE FOR DIALYSIS PATIEN TS. [id number] 05:33:00 Test Item Value Reference Range Interpretation Comments MAGNESIUM (BEAKER) (test code = 1.9 mg/dL 1.6-2.6 627) HEPATIC FUNCTION [id number] 05:33:00 Test Item Value Reference Range Interpretation Comments TOTAL PROTEIN (BEAKER) (test code = 4.6 gm/dL 6.0-8.3 L 770) ALBUMIN (BEAKER) (test code = 1145) 3.2 g/dL 3.5-5.0 L BILIRUBIN TOTAL (BEAKER) (test code 0.6 mg/dL 0.2-1.2 = 377) BILIRUBIN DIRECT (BEAKER) (test 0.3 mg/dL 0.1-0.5 code = 706) ALKALINE PHOSPHATASE (BEAKER) (test 46 U/L 40-150 code = 346) AST (SGOT) (BEAKER) (test code = 30 U/L 5-34 353) ALT (SGPT) (BEAKER) (test code = 12 U/L 6-55 347) CBC W/PLT COUNT & AUTO [id number] 05:19:00 Test Item Value Reference Range Interpretation Comments WHITE BLOOD CELL COUNT (BEAKER) 15.5 K/ L 3.5-10.5 H (test code = 775) RED BLOOD CELL COUNT (BEAKER) 2.85 M/ L 4.63-6.08 L (test code = 761) HEMOGLOBIN (BEAKER) (test code = 8.3 GM/DL 13.7-17.5 L 410) HEMATOCRIT (BEAKER) (test code = 23.9 % 40.1-51.0 L 411) MEAN CORPUSCULAR VOLUME (BEAKER) 83.9 fL 79.0-92.2 (test code = 753) MEAN CORPUSCULAR HEMOGLOBIN 29.1 pg 25.7-32.2 (BEAKER) (test code = 751) MEAN CORPUSCULAR HEMOGLOBIN CONC 34.7 GM/DL 32.3-36.5 (BEAKER) (test code = 752) RED CELL DISTRIBUTION WIDTH 14.6 % 11.6-14.4 H (BEAKER) (test code = 412) PLATELET COUNT (BEAKER) (test 108 K/CU MM 150-450 L code = 756) MEAN PLATELET VOLUME (BEAKER) 10.4 fL 9.4-12.4 (test code = 754) NUCLEATED RED BLOOD CELLS 0 /100 WBC 0-0 (BEAKER) (test code = 413) NEUTROPHILS RELATIVE PERCENT 68 % (BEAKER) (test code = 429) LYMPHOCYTES RELATIVE PERCENT 23 % (BEAKER) (test code = 430) MONOCYTES RELATIVE PERCENT 9 % (BEAKER) (test code = 431) EOSINOPHILS RELATIVE PERCENT 0 % (BEAKER) (test code = 432) BASOPHILS RELATIVE PERCENT 0 % (BEAKER) (test code = 437) NEUTROPHILS ABSOLUTE COUNT 10.52 K/ L 1.78-5.38 H (BEAKER) (test code = 670) LYMPHOCYTES ABSOLUTE COUNT 3.53 K/ L 1.32-3.57 (BEAKER) (test code = 414) MONOCYTES ABSOLUTE COUNT (BEAKER) 1.35 K/ L 0.30-0.82 H (test code = 415) EOSINOPHILS ABSOLUTE COUNT 0.01 K/ L 0.04-0.54 L (BEAKER) (test code = 416) BASOPHILS ABSOLUTE COUNT (BEAKER) 0.02 K/ L 0.01-0.08 (test code = 417) IMMATURE GRANULOCYTES-RELATIVE 1 % 0-1 PERCENT (BEAKER) (test code = 2801) PROTHROMBIN [id number] 09:47:00 Test Item Value Reference Range Interpretation Comments PROTIME (BEAKER) (test code = 19.8 seconds 11.7-14.7 H 759) INR (BEAKER) (test code = 370) 1.7 <=5.9 RECOMMENDED COUMADIN/WARFARIN INR THERAPY RANGESSTANDARD DOSE: 2.0 - 3.0 Includes: PROPHYLAXIS forvenous thrombosis, systemic embolization; TREATMENT for venous thrombosis and/or pulmonary embolus.HIGH RISK: Target INR is 2.5-3.5 for patients with mechanical heart valves.[id number] 09:47:00 Test Item Value Reference Range Interpretation Comments PARTIAL THROMBOPLASTIN TIME 31.8 seconds 22.5-36.0 (BEAKER) (test code = 760) CALCIUM, [id number] 09:11:00 Test Item Value Reference Range Interpretation Comments CALCIUM IONIZED (BEAKER) (test 0.99 mmol/L 1.12-1.27 L code = 698) PH, BLOOD (BEAKER) (test code = 7.32 1810) SODIUM NA-STAT [id number] 09:10:00 Test Item Value Reference Range Interpretation Comments SODIUM (BEAKER) (test code = 381) 135 meq/L 135-148 POTASSIUM-STAT [id number] 09:10:00 Test Item Value Reference Range Interpretation Comments POTASSIUM (BEAKER) (test code = 3.8 meq/L 3.6-5.5 379) BLOOD GAS, [id number] 09:10:00 Test Item Value Reference Range Interpretation Comments PH ARTERIAL (BEAKER) (test code = 7.33 7.35-7.45 L 383) PCO2 ARTERIAL (BEAKER) (test code 39 mmHg 35-45 = 384) PO2 ARTERIAL (BEAKER) (test code 272 mmHg 80-90 H = 385) O2 SATURATION ARTERIAL (BEAKER) 99.6 % 96.0-97.0 H (test code = 386) HCO3 ARTERIAL (BEAKER) (test code 20 mmol/L 21-29 L = 388) BASE EXCESS ARTERIAL (BEAKER) -5.5 mmol/L -2.0-3.0 L (test code = 387) PATIENT TEMPERATURE (BEAKER) 36.1 C (test code = 1818) FIO2 (BEAKER) (test code = 1819) 50.0 % GLUCOSE-STAT [id number] 09:10:00 Test Item Value Reference Range Interpretation Comments GLUCOSE RANDOM (BEAKER) (test code 117 mg/dL 70-110 H = 652) HGB/HCT (H&H) - STAT [id number] 09:10:00 Test Item Value Reference Range Interpretation Comments HEMOGLOBIN (BEAKER) (test code = 10.4 g/dL 13.0-16.8 L 410) HEMATOCRIT (BEAKER) (test code = 31.0 % 40.0-50.0 L 411) HEMOGLOBIN AND [id number] 06:26:00 Test Item Value Reference Range Interpretation Comments HEMOGLOBIN (BEAKER) (test code = 6.4 GM/DL 13.7-17.5 L 410) HEMATOCRIT (BEAKER) (test code = 21.9 % 40.1-51.0 L 411) [id number] 06:23:00 Test Item Value Reference Range Interpretation Comments PROTIME (BEAKER) (test code = 26.3 seconds 11.7-14.7 H 759) INR (BEAKER) (test code = 370) 2.4 <=5.9 PARTIAL THROMBOPLASTIN TIME 43.9 seconds 22.5-36.0 H (BEAKER) (test code = 760) RECOMMENDED COUMADIN/WARFARIN INR THERAPY RANGESSTANDARD DOSE: 2.0 - 3.0 Includes: PROPHYLAXIS forvenous thrombosis, systemic embolization; TREATMENT for venous thrombosis and/or pulmonary embolus.HIGH RISK: Target INR is 2.5-3.5 for patients with mechanical heart valves.CBC W/PLT COUNT & AUTO DIFFERENTIAL 2017-11-15 06:11:00 Test Item Value Reference Range Interpretation Comments WHITE BLOOD CELL COUNT (BEAKER) 15.3 K/ L 3.5-10.5 H (test code = 775) RED BLOOD CELL COUNT (BEAKER) 3.53 M/ L 4.63-6.08 L (test code = 761) HEMOGLOBIN (BEAKER) (test code = 10.3 GM/DL 13.7-17.5 L 410) HEMATOCRIT (BEAKER) (test code = 30.8 % 40.1-51.0 L 411) MEAN CORPUSCULAR VOLUME (BEAKER) 87.3 fL 79.0-92.2 (test code = 753) MEAN CORPUSCULAR HEMOGLOBIN 29.2 pg 25.7-32.2 (BEAKER) (test code = 751) MEAN CORPUSCULAR HEMOGLOBIN CONC 33.4 GM/DL 32.3-36.5 (BEAKER) (test code = 752) RED CELL DISTRIBUTION WIDTH 12.5 % 11.6-14.4 (BEAKER) (test code = 412) PLATELET COUNT (BEAKER) (test 186 K/CU MM 150-450 code = 756) MEAN PLATELET VOLUME (BEAKER) 10.3 fL 9.4-12.4 (test code = 754) NUCLEATED RED BLOOD CELLS 0 /100 WBC 0-0 (BEAKER) (test code = 413) NEUTROPHILS RELATIVE PERCENT 65 % (BEAKER) (test code = 429) LYMPHOCYTES RELATIVE PERCENT 26 % (BEAKER) (test code = 430) MONOCYTES RELATIVE PERCENT 8 % (BEAKER) (test code = 431) EOSINOPHILS RELATIVE PERCENT 0 % (BEAKER) (test code = 432) BASOPHILS RELATIVE PERCENT 0 % (BEAKER) (test code = 437) NEUTROPHILS ABSOLUTE COUNT 9.96 K/ L 1.78-5.38 H (BEAKER) (test code = 670) LYMPHOCYTES ABSOLUTE COUNT 4.03 K/ L 1.32-3.57 H (BEAKER) (test code = 414) MONOCYTES ABSOLUTE COUNT (BEAKER) 1.16 K/ L 0.30-0.82 H (test code = 415) EOSINOPHILS ABSOLUTE COUNT 0.04 K/ L 0.04-0.54 (BEAKER) (test code = 416) BASOPHILS ABSOLUTE COUNT (BEAKER) 0.05 K/ L 0.01-0.08 (test code = 417) IMMATURE GRANULOCYTES-RELATIVE 1 % 0-1 PERCENT (BEAKER) (test code = 2801) [id number] 06:03:00 Test Item Value Reference Range Interpretation Comments MAGNESIUM (BEAKER) (test code = 1.8 mg/dL 1.6-2.6 627) BASIC METABOLIC [id number] 06:03:00 Test Item Value Reference Range Interpretation Comments SODIUM (BEAKER) 138 meq/L 136-145 (test code = 381) POTASSIUM (BEAKER) 4.0 meq/L 3.5-5.1 (test code = 379) CHLORIDE (BEAKER) 109 meq/L 98-107 H (test code = 382) CO2 (BEAKER) (test 25 meq/L 22-29 code = 355) BLOOD UREA NITROGEN 12 mg/dL 7-21 (BEAKER) (test code = 354) CREATININE (BEAKER) 0.82 mg/dL 0.57-1.25 (test code = 358) GLUCOSE RANDOM 97 mg/dL 70-105 (BEAKER) (test code = 652) CALCIUM (BEAKER) 8.4 mg/dL 8.4-10.2 (test code = 697) EGFR (BEAKER) (test 116 mL/min/1.73 ESTIM ATED GFR IS code = 1092) sq m NOT ACCURATE CREATININE CLEARANCE IN PREDICTING GLOMERULAR FILTRATION RATE . ESTIMATED GFR I S NOT APPLICABLE FOR DIALYSIS PATIEN TS. BASIC METABOLIC [id number] 22:16:00 Test Item Value Reference Range Interpretation Comments SODIUM (BEAKER) 140 meq/L 136-145 (test code = 381) POTASSIUM (BEAKER) 3.9 meq/L 3.5-5.1 (test code = 379) CHLORIDE (BEAKER) 108 meq/L 98-107 H (test code = 382) CO2 (BEAKER) (test 24 meq/L 22-29 code = 355) BLOOD UREA NITROGEN 11 mg/dL 7-21 (BEAKER) (test code = 354) CREATININE (BEAKER) 0.90 mg/dL 0.57-1.25 (test code = 358) GLUCOSE RANDOM 106 mg/dL 70-105 H (BEAKER) (test code = 652) CALCIUM (BEAKER) 8.7 mg/dL 8.4-10.2 (test code = 697) EGFR (BEAKER) (test 105 mL/min/1.73 ESTIM ATED GFR IS code = 1092) sq m NOT ACCURATE CREATININE CLEARANCE IN PREDICTING GLOMERULAR FILTRATION RATE . ESTIMATED GFR I S NOT APPLICABLE FOR DIALYSIS PATIEN TS. CBC W/PLT COUNT & AUTO [id number] 22:10:00 Test Item Value Reference Range Interpretation Comments WHITE BLOOD CELL COUNT (BEAKER) 17.8 K/ L 3.5-10.5 H (test code = 775) RED BLOOD CELL COUNT (BEAKER) 4.07 M/ L 4.63-6.08 L (test code = 761) HEMOGLOBIN (BEAKER) (test code = 11.7 GM/DL 13.7-17.5 L 410) HEMATOCRIT (BEAKER) (test code = 35.0 % 40.1-51.0 L 411) MEAN CORPUSCULAR VOLUME (BEAKER) 86.0 fL 79.0-92.2 (test code = 753) MEAN CORPUSCULAR HEMOGLOBIN 28.7 pg 25.7-32.2 (BEAKER) (test code = 751) MEAN CORPUSCULAR HEMOGLOBIN CONC 33.4 GM/DL 32.3-36.5 (BEAKER) (test code = 752) RED CELL DISTRIBUTION WIDTH 12.1 % 11.6-14.4 (BEAKER) (test code = 412) PLATELET COUNT (BEAKER) (test 225 K/CU MM 150-450 code = 756) MEAN PLATELET VOLUME (BEAKER) 11.5 fL 9.4-12.4 (test code = 754) NUCLEATED RED BLOOD CELLS 0 /100 WBC 0-0 (BEAKER) (test code = 413) NEUTROPHILS RELATIVE PERCENT 89 % (BEAKER) (test code = 429) LYMPHOCYTES RELATIVE PERCENT 7 % (BEAKER) (test code = 430) MONOCYTES RELATIVE PERCENT 3 % (BEAKER) (test code = 431) EOSINOPHILS RELATIVE PERCENT 0 % (BEAKER) (test code = 432) BASOPHILS RELATIVE PERCENT 0 % (BEAKER) (test code = 437) NEUTROPHILS ABSOLUTE COUNT 15.84 K/ L 1.78-5.38 H (BEAKER) (test code = 670) LYMPHOCYTES ABSOLUTE COUNT 1.18 K/ L 1.32-3.57 L (BEAKER) (test code = 414) MONOCYTES ABSOLUTE COUNT (BEAKER) 0.57 K/ L 0.30-0.82 (test code = 415) EOSINOPHILS ABSOLUTE COUNT 0.00 K/ L 0.04-0.54 L (BEAKER) (test code = 416) BASOPHILS ABSOLUTE COUNT (BEAKER) 0.05 K/ L 0.01-0.08 (test code = 417) IMMATURE GRANULOCYTES-RELATIVE 1 % 0-1 PERCENT (BEAKER) (test code = 1435)
[2021-08-22] MEDS ORDERED: LORazepam 2 MG/ML VIAL ONE (08:30)
--- NOTE | 2021-08-22 09:31 | RAD REPORT ---
EXAM DESCRIPTION: RAD - Shoulder Left 2 View - 08/22/2021 9:16 am CLINICAL HISTORY: PAIN COMPARISON: Shoulder Left 2 View dated 04/16/2019; Shoulder Left Wo Cont dated 12/23/2020; Shoulder Left 2 View dated 04/16/2019 FINDINGS/IMPRESSION: No acute left shoulder fracture or dislocation. Deformity of the left midclavic le may be from remote fracture or anatomic variant.
--- NOTE | 2021-08-22 09:49 | ER ---
Nurse's Notes [facility] Name: Aidan Farley Age: 26 yrs Sex: Male : 1995 Arrival Date: 08/22/2021 Time: 07:53 Bed 20 Private MD: Diagnosis: Pain in left shoulder Presentation: 08/22 08:01 Chief complaint: Patient states: Getting dressed this morning and his left shoulder ww popped out of place. Patient states this happens often and has seen a DrSergio about it. Coronavirus screen: Vaccine status: Patient reports being unvaccinated. Client denies travel out of the [place] in the last 14 days. Ebola Screen: Patient denies travel to an Ebola-affected area in the 21 days before illness onset. Initial Sepsis Screen: Does the patient meet any 2 criteria? No. Patient's initial sepsis screen is negative. Does the patient have a suspected source of infection? No. Patient's initial sepsis screen is negative. Risk Assessment: Do you want to hurt yourself or someone else? Patient reports no desire to harm self or others. Onset of symptoms was August 22, 2021. 08:01 Method Of Arrival: Ambulatory ww 08:01 Acuity: ARACELI 3 ww Triage Assessment: 08:03 General: Appears uncomfortable, Behavior is calm, cooperative. Pain: Complains of pain ww in left trapezius and left scapular area. Neuro: Level of Consciousness is awake, alert, obeys commands, Oriented to person, place, time, situation, Speech is normal. Cardiovascular: Capillary refill < 3 seconds Patient's skin is warm and dry. Respiratory: Airway is patent Respiratory effort is even, unlabored, Respiratory pattern is regular, symmetrical. GI: No signs and/or symptoms were reported involving the gastrointestinal system. : No signs and/or symptoms were reported regarding the genitourinary system. Musculoskeletal: 09:41 Injury Description: N/A. jd3 Historical: - Allergies: 08:03 Codeine; ww 08:03 Tramadol HCl; ww - Home Meds: 08:03 lamotrigine oral for simple-partial epilepsy [Active]; ww - PMHx: 08:03 Seizures; shoulder dislocation; ww - PSHx: 08:03 right hand; ww - Immunization history:: Adult Immunizations not up to date. - Social history:: Smoking status: Patient denies any tobacco usage or history of. Patient uses street drugs, marijuana. Screenin:06 Abuse screen: Denies threats or abuse. Denies injuries from another. Nutritional ww screening: No deficits noted. Tuberculosis screening: No symptoms or risk factors identified. 09:41 Fall Risk None identified. IV access (20 points). Ambulatory Aid- None/Bed Rest/Nurse jd3 Assist (0 pts). Gait- Normal/Bed Rest/Wheelchair (0 pts) Mental Status- Oriented to own ability (0 pts). Total Dee Fall Scale indicates No Risk (0-24 pts). Assessment: 09:25 General: Appears in no apparent distress. comfortable, Behavior is calm, cooperative, jd3 appropriate for age. Pain: Complains of pain in left shoulder Quality of pain is described as aching. Neuro: Level of Consciousness is awake, alert, obeys commands, Oriented to person, place, time, situation. Cardiovascular: Capillary refill < 3 seconds Patient's skin is warm and dry. Respiratory: Airway is patent Respiratory effort is even, unlabored, Respiratory pattern is regular, symmetrical. GI: No signs and/or symptoms were reported involving the gastrointestinal system. : No signs and/or symptoms were reported regarding the genitourinary system. EENT: No signs and/or symptoms were reported regarding the EENT system. Derm: Skin is intact, Skin is dry, Skin is normal, Skin temperature is warm. Musculoskeletal: Circulation, motion, and sensation intact. Range of motion: limited in left shoulder. 10:30 Reassessment: Patient appears in no apparent distress at this time. Patient and/or jd3 family updated on plan of care and expected duration. Pain level reassessed. Patient is alert, oriented x 3, equal unlabored respirations, skin warm/dry/pink. even and steady gait upon discharge to [facility]. reported understanding of discharge instructions and fallow-up care. Vital Signs: 08:01 BP 146 / 96; Pulse 94; Resp 18; Temp 97.7; Pulse Ox 100% on R/A; Weight 77.11 kg; ww Height 5 ft. 10 in. (177.80 cm); 10:31 BP 136 / 87; Pulse 91; Resp 18 S; Pulse Ox 100% on R/A; jd3 08:01 Body Mass Index 24.39 (77.11 kg, 177.80 cm) ww ED Course: 07:53 Patient arrived in ED. ll1 07:53 Arm band placed on Patient placed in an exam room, on a stretcher. ll1 07:54 Noe Mondragon NP is PHCP. pm1 07:54 Guy Shaikh MD is Attending Physician. pm1 08:03 Triage completed. ww 09:16 Shoulder Left (2 View) XRAY In Process Unspecified. EDMS 09:25 Inserted saline lock: 20 gauge in right antecubital area, using aseptic technique. jd3 09:37 Manuel Cortez, RN is Primary Nurse. jd3 09:40 Patient has correct armband on for positive identification. Placed in gown. Bed in low jd3 position. Call light in reach. Side rails up X 1. Pulse ox on. NIBP on. 09:48 Geo Craig MD is Referral Physician. pm1 10:29 No provider procedures requiring assistance completed. IV discontinued, intact, jd3 bleeding controlled, No redness/swelling at site. Pressure dressing applied. Administered Medications: 09:27 Drug: Ativan (LORazepam) 1 mg Route: IVP; Site: right antecubital; jd3 10:25 Follow up: Response: No adverse reaction jd3 09:27 Drug: Ativan (LORazepam) 1 mg Route: IVP; Site: right antecubital; jd3 10:25 Follow up: Response: No adverse reaction jd3 Outcome: 09:49 Discharge ordered by . pm1 10:30 Discharged to home ambulatory, with family. jd3 10:30 Condition: stable 10:30 Discharge instructions given to patient, Instructed on discharge instructions, follow up and referral plans. Demonstrated understanding of instructions, follow-up care. 10:31 Patient left the ED. jd3 Signatures: Dispatcher [employer] EDMS Noe Mondragon NP CORRECTIONS OFFICER pm1 Manuel Cortez RN RN jd3 Brenda Sr RN RN ll1 Nati Molina RN RN ww
--- NOTE | 2021-08-22 09:49 | EDPHYS ---
Physician Documentation [facility] Name: Aidan Farley Age: 26 yrs Sex: Male : 1995 Arrival Date: 08/22/2021 Time: 07:53 Bed 20 Private MD: CAROLYN Physician Guy Shaikh HPI: 08/22 09:27 This 26 yrs old Male presents to ER via Ambulatory with complaints of Shoulder Injury. pm1 09:27 The patient or guardian complains of pain. left shoulder. Context: The problem was pm1 sustained at home, resulted from Changing clothes. Patient has history of chronic dislocations of left shoulder since 5 years ago. Onset: The symptoms/episode began/occurred today. Modifying factors: the symptoms are alleviated by remaining still, The symptoms are aggravated by movement. Associated signs and symptoms: Pertinent negatives: Numbness in left arm tingling. Severity of symptoms: in the emergency department the symptoms are actually worse. Treatment prior to arrival includes: no previous treatment. The patient has experienced similar episodes in the past, multiple times. The patient has not recently seen a physician. Patient was changing his clothes this morning and reports left shoulder dislocation. Patient with history of torn labrum per MRI in the past with Dr. Craig. Patient reports multiple episodes of dislocation since onset about 5 years ago. Historical: - Allergies: 08:03 Codeine; ww 08:03 Tramadol HCl; ww - Home Meds: 08:03 lamotrigine oral for simple-partial epilepsy [Active]; ww - PMHx: 08:03 Seizures; shoulder dislocation; ww - PSHx: 08:03 right hand; ww - Immunization history:: Adult Immunizations not up to date. - Social history:: Smoking status: Patient denies any tobacco usage or history of. Patient uses street drugs, marijuana. ROS: 09:27 Constitutional: Negative for fever, chills, and weight loss, Cardiovascular: Negative pm1 for chest pain, palpitations, and edema, Respiratory: Negative for shortness of breath, cough, wheezing, and pleuritic chest pain, Abdomen/GI: Negative for abdominal pain, nausea, vomiting, diarrhea, and constipation. 09:27 Skin: Negative for injury, rash, and discoloration, Neuro: Negative for headache, weakness, numbness, tingling, and seizure. 09:27 MS/extremity: Positive for pain, of the left shoulder. 09:27 All other systems are negative. Exam: 09:27 Constitutional: This is a well developed, well nourished patient who is awake, alert, pm1 and in no acute distress. Head/Face: Normocephalic, atraumatic. 09:27 Back: No spinal tenderness. No costovertebral tenderness. Full range of motion. Skin: Warm, dry with normal turgor. Normal color with no rashes, no lesions, and no evidence of cellulitis. MS/ Extremity: Pulses equal, no cyanosis. Neurovascular intact. Full, normal range of motion. 09:27 Cardiovascular: Exam negative for acute changes, Rate: normal, Rhythm: regular, Pulses: no pulse deficits are appreciated. 09:27 Respiratory: Exam negative for acute changes, chest pain, respiratory distress, shortness of breath. 09:27 Abdomen/GI: Exam negative for acute changes, Inspection: abdomen appears normal, Palpation: abdomen is soft and non-tender, in all quadrants. 09:27 Neuro: Exam negative for acute changes, Orientation: is normal, Mentation: is normal, Motor: moves all fours. Vital Signs: 08:01 BP 146 / 96; Pulse 94; Resp 18; Temp 97.7; Pulse Ox 100% on R/A; Weight 77.11 kg; ww Height 5 ft. 10 in. (177.80 cm); 10:31 BP 136 / 87; Pulse 91; Resp 18 S; Pulse Ox 100% on R/A; jd3 08:01 Body Mass Index 24.39 (77.11 kg, 177.80 cm) ww MDM: 07:54 Patient medically screened. pm1 09:47 Data reviewed: vital signs. Data interpreted: Pulse oximetry: on room air is 100 %. pm1 Interpretation: normal. 09:47 Counseling: I had a detailed discussion with the patient and/or guardian regarding: the pm1 historical points, exam findings, and any diagnostic results supporting the discharge/admit diagnosis, radiology results, the need for outpatient follow up, for definitive care, a orthopedic surgeon, to return to the emergency department if symptoms worsen or persist or if there are any questions or concerns that arise at home. 08/22 08:46 Order name: Shoulder Left (2 View) XRAY; Complete Time: 09:33 em1 08/22 09:27 Order name: IV Saline Lock; Complete Time: 09:28 pm1 08/22 09:27 Order name: Shoulder Immobilizer; Complete Time: : pm1 Administered Medications: : Drug: Ativan (LORazepam) 1 mg Route: IVP; Site: right antecubital; jd3 10:25 Follow up: Response: No adverse reaction jd3 09:27 Drug: Ativan (LORazepam) 1 mg Route: IVP; Site: right antecubital; jd3 10:25 Follow up: Response: No adverse reaction jd3 Disposition: 18:29 Co-signature as Attending Physician, Guy Shaikh MD I agree with the assessment and noe plan of care. Disposition Summary: 08/22/21 09:49 Discharge Ordered Location: Home pm1 Problem: new pm1 Symptoms: have improved pm1 Condition: Stable pm1 Diagnosis - Pain in left shoulder pm1 Followup: pm1 - With: Emergency Department - When: As needed - Reason: Worsening of condition Followup: pm1 - With: Geo Craig MD - When: 2 - 3 days - Reason: Recheck today's complaints, Continuance of care, Re-evaluation by your physician Discharge Instructions: - Discharge Summary Sheet pm1 - Shoulder Pain pm1 - How to Use a Sling pm1 Forms: - Medication Reconciliation Form pm1 - Thank You Letter pm1 - Antibiotic Education pm1 - Prescription Opioid Use pm1 - Work release form jd3 Signatures: Dispatcher [employer] Guy Piedra MD MD cha Marinas, Patrick, NP ACCOUNTING/FINANCE TUTOR pm1 Manuel Cortez RN RN jNati Guadarrama RN RN ww
[2021-08-22 10:42] VITALS: TEMP 97.7; O2SAT 100
[2021-08-22 10:44] VITALS: BP 136/87
== END 2021-08-22 10:31 | disposition home or self-care (01) ==
LOC: ER 07:51
DX: M25.512 Pain in left shoulder (principal); Z88.5 Allergy status to narcotic agent
CPT/HCPCS: 96374; 99284